=== PATIENT | female | born 1970 | race Caucasian/White ===

== ENCOUNTER 2016-08-29 21:30 | Inpatient (IN) | payer BC ==
--- NOTE | ~2016-08-29 | HP ---
Unit #: [id number] #: [id number] Patient: LEE AYERS [id number] [address] [place], [place] [address] [id number] MR#: [id number] NAME: LEE AYERS ROOM: 204 Age: 46 Sex: F Admission Date: 08/29/2016 : 1970 Attending Physician: Alhaji Shah M.D. Referring Physician: Alhaji Shah M.D. Primary Care Physician: Vamshi King M.D. HISTORY AND PHYSICAL CHIEF COMPLAINT Abdominal pain, nausea and vomiting. HISTORY This 46-year-old woman with a history of medullary sponge kidney and multiple ureteroscopies in the past and who takes chronic hydrochlorothiazide for stone prophylaxis. Underwent ureteroscopy by Dr. Shah at [facility] one week ago. Evidently there were bilateral stents placed, which were removed in the office yesterday. After getting home she developed a severe colic, worse on the left side and was ultimately admitted. Pain persists overnight and there is hydronephrosis, especially on the left side, but no important stones. She has had no fever or chills and laboratories are unremarkable. PAST MEDICAL HISTORY Stone disease, anxiety/depression, mild hypothyroidism. PAST SURGICAL HISTORY Hysterectomy, cholecystectomy, ureteroscopies. MEDICATIONS Hydrochlorothiazide, Prozac, liothyronine. ALLERGIES None known. PHYSICAL EXAMINATION GENERAL: The patient is uncomfortable but afebrile with stable vital signs. VITAL SIGNS: Temperature 98.0 degrees, pulse 73, blood pressure 118/63, respirations 16, height 5'7", weight 175 pounds. HEENT: Unremarkable. LUNGS: Clear. CARDIAC: Rate and rhythm regular. ABDOMEN: Large, soft, with left-sided tenderness. EXTREMITIES: No edema. NEUROLOGIC: Intact. DIAGNOSTIC STUDIES LABORATORY STUDIES: Included WBC 7.0, hemoglobin 11.3, BUN 14, creatinine 0.8. The electrolytes do show a potassium of 3.3. No urine studies. IMAGING STUDIES: CT scan shows moderate left hydroureteronephrosis and mild right hydroureteronephrosis. No significant ureteral stone. Unit #: [id number] #: [id number] Patient: AYERS,LEE IMPRESSION Post stent colic likely to resolve. PLAN 1. I will advance her diet. 2. Ambulate. 3. Prophylaxis subcutaneous Lovenox. 4. Add Toradol and culture the urine. If she does not improve by tomorrow, could potentially benefit from stent replacement. Dictated by Piter Burk M.D. GINGER/diego TD: 08/30/2016 12:27 JOB #: [id number] HISTORY AND PHYSICAL X Piter Burk MD X HISTORY AND PHYSICAL
--- NOTE | ~2016-08-29 | DS ---
Unit #: [id number] #: [id number] Patient: LEE AYERS [id number] [address] [place], [place] [address] [id number] I MR#: [id number] NAME: LEE AYERS ROOM: 204 Age: 46 Sex: F Admission Date: 08/29/2016 : 1970 Discharge Date: 09/01/2016 Attending Physician: Alhaji Shah M.D. Referring Physician: Alhaji Shah M.D. Primary Care Physician: Vamshi King M.D. DISCHARGE SUMMARY ADMITTING DIAGNOSIS Left hydronephrosis. DISCHARGE DIAGNOSIS Left hydronephrosis. ADMITTING INFORMATION The patient is a pleasant 46-year-old female, who had undergone recent ureteroscopy bilaterally. She underwent stent placement, and after the ureteroscopy, she underwent stent removal in the office earlier on the day of admission and presented with severe left flank pain. She was admitted for further management. HOSPITAL COURSE The patient was admitted. She underwent CT of the abdomen and pelvis, which showed bilateral hydronephrosis, left greater than right with only a 1 mm stone in the left ureter, which was nonobstructing. This was thought to be hydronephrosis secondary to edema. She was placed on IV fluids, IV pain control, and Toradol, as well as Flomax. Her urine culture was negative. She was afebrile. Her renal function was normal. Her pain improved. She will be discharged home today. DISCHARGE MEDICATIONS She will be discharged home on Flomax and Percocet. FOLLOWUP She will follow up in 1 month with a renal ultrasound. She will follow up sooner with any concerns including temperature greater than 101, inability to tolerate fluids, pain not controlled by pain medications, chest pain, shortness of breath, unilateral lower extremity swelling, or any other concerns. Dictated by... Alhaji Shah M.D. MELY/gonzalezl TD: 09/04/2016 05:52 JOB #: [id number] Unit #: [id number] #: [id number] Patient: LEE AYERS DISCHARGE SUMMARY X Alhaji Shah MD DISCHARGE SUMMARY
[~2016-08-29 21:30] MED LIST: CIPRO PO; HYDROCHLOROTHIA25 MG PO; HYDROCODON-ACE1 EACH PO; NORCO 7.5/325 T1 TAB PO; PHENERGAN25 MG PO; PROZAC PO; VESICARE PO
[2016-08-29] MEDS ORDERED: LIOTHYRONINE SO5 MC1 PO (21:54)
[2016-08-30 06:31] LABS: HEMATOCRIT 34.6 % (35.0-45.0); HEMOGLOBIN 11.3 gm/dL (12.0-16.0); MEAN CELL VOLUME 86.6 FL (83-96); MEAN CORPUSCULAR HEMOGLOBIN 28.3 PG (28-34); MEAN CORPUSCULAR HGB CONC 32.7 g/dL (30-36); MEAN PLATELET VOLUME 7.6 FL (6.5-11.5); RED BLOOD COUNT 3.99 X10e (3.90-5.30); RED CELL DISTRIBUTION WIDTH 13.4 % (11.0-15.5)
[2016-08-30 07:29] LABS: BLOOD UREA NITROGEN 14 mg/dL (9-23); CALCIUM SERUM 8.4 mg/dL (8.4-10.2); CARBON DIOXIDE 27 mmol/L (22-31); CHLORIDE 103 mmol/L (100-111); CREATININE SERUM 0.8 mg/dL (0.6-1.4); GLOM FILT RATE Estimated ABOVE60 mL/min (>60); GLUCOSE FASTING 102 mg/dL (70-110); POTASSIUM 3.3 mmol/L (3.5-5.1); SODIUM 137 mmol/L (135-145)
[2016-08-31 06:50] LABS: HEMATOCRIT 36.6 % (35.0-45.0); HEMOGLOBIN 11.9 gm/dL (12.0-16.0); MEAN CELL VOLUME 88.1 FL (83-96); MEAN CORPUSCULAR HEMOGLOBIN 28.5 PG (28-34); MEAN CORPUSCULAR HGB CONC 32.4 g/dL (30-36); MEAN PLATELET VOLUME 7.5 FL (6.5-11.5); RED BLOOD COUNT 4.15 X10e (3.90-5.30); RED CELL DISTRIBUTION WIDTH 13.8 % (11.0-15.5)
[2016-08-31 07:32] LABS: BLOOD UREA NITROGEN 11 mg/dL (9-23); BUN/CREATININE RATIO 15.71; CALCIUM SERUM 8.7 mg/dL (8.4-10.2); CARBON DIOXIDE 27 mmol/L (22-31); CHLORIDE 103 mmol/L (100-111); CREATININE SERUM 0.7 mg/dL (0.6-1.4); GLOM FILT RATE Estimated ABOVE60 mL/min (>60); GLUCOSE FASTING 98 mg/dL (70-110); POTASSIUM 3.8 mmol/L (3.5-5.1); SODIUM 140 mmol/L (135-145)
[2016-09-01] MEDS ORDERED: FLOMAX0.4 M1 PO (09:41)
[2016-09-01] MEDS ORDERED: PERCOCET 10/31 UDTA1 PO (09:41)
== END 2016-09-01 10:28 | disposition home or self-care (01) | DRG 694 ==
LOC: C2A 21:30
PROVIDERS: Urology
DX: N13.2 Hydronephrosis with renal and ureteral calculous obstruction (principal); E03.9 Hypothyroidism, unspecified; R10.9 Unspecified abdominal pain; R11.2 Nausea with vomiting, unspecified; Z90.49 Acquired absence of other specified parts of digestive tract; Z90.710 Acquired absence of both cervix and uterus
CPT/HCPCS: 80048; 85027; 87086; J0696; J1170; J1650; J1885; J2405; J2550; J3480

== ENCOUNTER → 2016-09-03 17:10 | Emergency (ER) | payer BC ==
[~2016-09-03 17:10] MED LIST changes: +FLOMAX0.4 M1 PO; +LIOTHYRONINE SO5 MC1 PO; +PERCOCET 10/31 UDTA1 PO
== END | disposition left against medical advice (07) ==
LOC: CED 17:10
DX: Z53.21 Procedure and treatment not carried out due to patient leaving prior to being seen by health care provider (principal)

== ENCOUNTER 2016-10-16 15:52 | Emergency (ER) | payer BC ==
--- NOTE | ~2016-10-16 | US77 ---
[facility] A Service of [facility] RADIOLOGY TEXT RESULTS PATIENT: LEE AYERS LOCATION: [facility] : 72 UNIT #: [id number] AGE: [address]: Gilbert Gastelum MD SEX: F ORDER DR: [id number] [facility] [address] [place] [address] [place], [place] [address] [id number] E MR#: [id number] Acc #: [id number] NAME: LEE AYERS : 1970 SEX: F STUDY DATE/TIME: 10/16/2016 15:15 UNIT: [facility] ROOM: STUDY DESCRIPTION: US Kidney Bilateral Complete Attending Physician: Gilbert Gastelum M.D. Ordering Physician: Altaf Baird M.D. Primary Care Physician: Leonel Vargas M.D. MEDICAL IMAGING REPORT This report is preliminary unless electronic signature is present EXAM Bilateral renal ultrasound, 10/16/16 INDICATIONS Flank pain, renal calculi, medullary sponge kidney diagnosed 20 years ago. History of lithotripsy. Bilateral flank and back pain for 2 days. TECHNIQUE Sonographic imaging of the kidneys was performed bilaterally. Correlation is made with prior renal stone, 09/17/[address] abdomen and pelvis 08/29/2016 FINDINGS Right kidney measures 9.9 cm long axis and the left 11.4 cm. No hydronephrosis on either side. There are nonspecific echogenic reflectors associated with the upper and lower pole right kidney and mid pole left kidney likely reflecting nonobstructing stones. Probable nonobstructing stones in the mid pole region left kidney. Portions of both kidneys were obscured by bowel gas or lack of an adequate sonographic window and not well visualized or assessed. The patient has a history of nonobstructing stones on recent CT 08/29/2016 as well. Hydronephrosis identified in both kidneys on the recent CT has resolved. IMPRESSION 1. No hydronephrosis of either kidney. 2. Probable nonobstructing stones associated with both kidneys as described. 3. Bladder unremarkable. Dictated by... Joce Schultz M.D. [facility] A Service of [facility] RADIOLOGY TEXT RESULTS PATIENT: LEE AYERS LOCATION: [facility] : 72 UNIT #: [id number] AGE: [address]: Gilbert Gastelum MD SEX: F ORDER DR: THIS IS AN ELECTRONICALLY VERIFIED REPORT Joce Schultz M.D. at 10/16/2016 7:47 PM Demar TD: 10/16/2016 18:51 JOB #: [id number] MEDICAL IMAGING REPORT Page 1 of 1 COPY
--- NOTE | ~2016-10-16 | CR7 ---
[facility] A Service of [facility] RADIOLOGY TEXT RESULTS PATIENT: LEE AYERS LOCATION: [facility] : 72 UNIT #: [id number] AGE: [address]: Gilbert Gastelum MD SEX: F ORDER DR: [id number] [facility] [address] [place], [place] [address] [id number] E MR#: [id number] Acc #: [id number] NAME: LEE AYERS : 1970 SEX: F STUDY DATE/TIME: 10/16/2016 14:11 UNIT: [facility] ROOM: STUDY DESCRIPTION: CR Abdomen Single AP View Attending Physician: Gilbert Gastelum M.D. Ordering Physician: Altaf Baird M.D. Primary Care Physician: Leonel Vargas M.D. MEDICAL IMAGING REPORT This report is preliminary unless electronic signature is present EXAM Single-view abdomen HISTORY Left-sided flank pain, onset today. History of kidney stones and prior cholecystectomy. COMPARISON 09/29/2016 FINDINGS Single view of the abdomen demonstrates a normal nonobstructive bowel gas pattern. Surgical clips noted in the right upper quadrant consistent with prior cholecystectomy as well as pelvic clips compatible with tubal ligation. Mild dextroscoliosis lumbar spine with mild degenerative change lower lumbar spine. No organomegaly. No abnormal masses or calcifications identified. IMPRESSION Postsurgical clips noted in the right upper quadrant and pelvis. No acute intraabdominal or intrapelvic pathology identified. In particular, no evidence of renal stone. Dictated by... Vida David M.D. THIS IS AN ELECTRONICALLY VERIFIED REPORT Vida David M.D. at 10/16/2016 7:34 PM ADWOA/kristi TD: 10/16/2016 16:10 JOB #: [id number] [facility] A Service of [facility] RADIOLOGY TEXT RESULTS PATIENT: LEE AYERS LOCATION: [facility] : 72 UNIT #: [id number] AGE: [address]: Gilbert Gastelum MD SEX: F ORDER DR: MEDICAL IMAGING REPORT Page 1 of 1 COPY
[2016-10-16 14:18] LABS: URINE SOURCE CLEAN CATCH
[2016-10-16 14:30] LABS: URINE APPEARANCE CLOUDY; URINE BILIRUBIN NEG (NEG); URINE BLOOD NEG (NEG); URINE COLOR YELLOW; URINE GLUCOSE NEG (NEG); URINE KETONE 1+ (NEG); URINE LEUKOCYTE ESTERASE NEG (NEG); URINE NITRATE NEG (NEG); URINE PH 6.5 (5-8); URINE PROTEIN NEG (NEG); URINE SPECIFIC GRAVITY 1.017 (1.003-1.035); URINE UROBILINOGEN 0.2 MG/DL (NEG)
[2016-10-16 14:41] LABS: CULTURE INDICATED? NO
[2016-10-16 14:51] LABS: BASOPHIL% 0.5 % (0-2.5); EOSINOPHIL# 0.1 X10e3 (0-0.7); EOSINOPHIL% 1.2 % (0.0-7.0); HEMATOCRIT 40.5 % (35.0-45.0); HEMOGLOBIN 13.2 gm/dL (12.0-16.0); LYMPHOCYTE# 2.4 X10e3 (1.0-3.5); LYMPHOCYTE% 26.9 % (17.0-45.0); MEAN CELL VOLUME 86.6 FL (83-96); MEAN CORPUSCULAR HEMOGLOBIN 28.3 PG (28-34); MEAN CORPUSCULAR HGB CONC 32.6 g/dL (30-36); MEAN PLATELET VOLUME 8.2 FL (6.5-11.5); MONOCYTE# 0.5 X10e3 (0-1.0); MONOCYTE% 5.4 % (3.0-12.0); NEUTROPHIL# 5.8 X10e3 (1.5-7.1); PLATELET COUNT 259 X10e3 (140-420); RED BLOOD COUNT 4.68 X10e (3.90-5.30); RED CELL DISTRIBUTION WIDTH 13.8 % (11.0-15.5); WHITE BLOOD COUNT 8.8 X10e3 (4.0-10.5)
[2016-10-16 14:56] LABS: DIFF IND NO
[2016-10-16 15:29] LABS: ALBUMIN SERUM 4.3 g/dL (3.5-5.0); BILIRUBIN, DIRECT 0.1 mg/dL (0.0-0.2); BILIRUBIN,INDIRECT 0.4 mg/dL (0.0-0.9); BILIRUBIN,TOTAL 0.5 mg/dL (0.2-2.0); BUN/CREATININE RATIO 12.22; CALCIUM SERUM 9.1 mg/dL (8.4-10.2); CREATININE SERUM 0.9 mg/dL (0.6-1.4); GLOM FILT RATE Estimated 77.3 mL/min (>60); PROTEIN TOTAL SERUM 7.2 g/dL (6.0-8.3)
== END 2016-10-16 17:45 | disposition home or self-care (01) ==
LOC: CED 15:52
PROVIDERS: Emergency Medicine
DX: R10.9 Unspecified abdominal pain (principal); I10 Essential (primary) hypertension; Z87.442 Personal history of urinary calculi; Z90.710 Acquired absence of both cervix and uterus; Z98.890 Other specified postprocedural states
CPT/HCPCS: 36415; 74000; 76770; 80048; 80076; 81003; 83690; 85025; 96361; 96374; 96375; 96376; 99284; J1885; J2270; J2405